=== PATIENT | male | born 1965 | race Hispanic/Latino ===

== ENCOUNTER 2018-04-20 10:33 | Emergency (ER) | payer OTHER ==
[2018-04-20 10:39] VITALS: RESP 19; O2SAT 96
--- NOTE | 2018-04-20 13:08 | ED PDOC ---
Lower Extremity Pain/Injury Time Seen by Provider: 04/20/18 13:06 Chief Complaint (Nursing): Lower Extremity Problem/Injury Chief Complaint (Provider): BILATERAL KNEE PAIN History Per: Patient (52 Y/O MALE HERE WITH BILATERAL KNEE PAIN NOTES WITH CRAMPY PAIN X 2 DAYS BEHIND LEFT KNEE. DENIES ANY FALLS. HAS H/O SX ON LEFT LEG OLD. NOTES HE IS ACTIVE-RUNS/LIFTING WEIGHTS BUT NOTES DECREASE ACTIVITY PRIOR TO ONSET OF SYMPTOMS.) Past Medical History Reviewed: Historical Data, Nursing Documentation, Vital Signs Vital Signs: Last Vital Signs Temp 98.1 F 04/20/18 10:39 Pulse 85 04/20/18 10:39 Resp 19 04/20/18 10:39 BP 133/81 04/20/18 10:39 Pulse Ox 96 04/20/18 10:39 - Family History Family History: States: No Known Family Hx - Home Medications Home Medications: Ambulatory Orders Medication Instructions Recorded Ibuprofen [Motrin] 600 mg PO Q8 PRN #21 tab 05/07/15 No Other Home Meds 1 pow PO DAILY 05/07/15 Ibuprofen [Motrin] 600 mg PO Q8 PRN #21 tab 04/20/18 - Allergies Allergies/Adverse Reactions: Allergies Allergy/AdvReac Type Severity Reaction Status Date / Time No Known Allergies Allergy Verified 05/06/15 23:40 Review of Systems ROS Statement: Except As Marked, All Systems Reviewed And Found Negative Musculoskeletal: Positive for: Other (LEFT KNEE PAIN) Physical Exam - Reviewed Nursing Documentation Reviewed: Yes Vital Signs Reviewed: Yes - Physical Exam Appears: Positive for: Well, Non-toxic, No Acute Distress Head Exam: Positive for: ATRAUMATIC, NORMAL INSPECTION, NORMOCEPHALIC Skin: Positive for: Normal Color, Warm, DRY Eye Exam: Positive for: EOMI, Normal appearance, PERRL ENT: Positive for: Normal ENT Inspection Neck: Positive for: Normal, Painless ROM Cardiovascular/Chest: Positive for: Regular Rate, Rhythm Respiratory: Positive for: CNT, Normal Breath Sounds Gastrointestinal/Abdominal: Positive for: Normal Exam, Soft Back: Positive for: Normal Inspection Extremity: Positive for: Normal ROM, Tenderness (BEHIND LEFT KNEE. MINIMAL EFFUSION NOTED LEFT KNEE. NONTENDER KNEE) Neurologic/Psych: Positive for: Alert, Oriented - ECG O2 Sat by Pulse Oximetry: 96 - Progress ED Course And Treament: DUPLEX LEG: NO DVT XRY OF KNEE: NEG FOR FX XRY OF TIB/FIB LEFT: OLD FX TIB/FIB Disposition - Clinical Impression Clinical Impression: Knee pain - Patient ED Disposition Is Patient to be Admitted: No - Disposition Referrals: [facility] [Outside] Jesu Blanton III, MD [Staff Provider] - Disposition: Routine/Home Disposition Time: 14:32 Condition: FAIR Prescriptions: Ibuprofen [Motrin] 600 mg PO Q8 PRN #21 tab PRN Reason: Pain, Moderate (4-7) Instructions: Knee Pain Forms: [facility] ED School/Work Excuse
--- NOTE | 2018-04-20 14:06 | US ---
Date of service: 04/20/2018 HISTORY: R/O DVT. PRIORS: None. FINDINGS: 2-D, color and duplex Doppler analysis of the lower extremity venous circulation using routine protocol from the femoral veins through the popliteal veins. Venous compressibility: Normal. Flow and augmentation patterns: Normal. Visualized veins upper third of calf: Normal. Bernabe cyst: None. IMPRESSION: No sonographic or Doppler evidence for DVT in left lower extremity.
--- NOTE | 2018-04-20 14:41 | RAD ---
Date of service: 04/20/2018 PROCEDURE: Radiographs of the left tibia and fibula. HISTORY: LEFT KNEE PAIN COMPARISON: None available. TECHNIQUE: Frontal and lateral views obtained. FINDINGS: BONES: There is slight deformity of the distal tibial and femoral shafts at a similar level with apparent osseous fusion between the 2. Medial and lateral tibial cortical thickening along this mildly expanded faintly radiolucent region. No acute pathological fractures seen. On the lateral view projecting both over the posterior distal tibial metaphyseal cortex and same level anterior distal fibula is a geographic slightly sclerotic rimmed 3 by 0.6 cm apparent intra cortical expansile lesion. No acute cortical fracture cortical interruption is appreciated. Distal anterior tibiotalar ankle joint level hypertrophic and arthropathic type cystic changes noted. Medial tibiotalar osseous arthro pathic hypertrophic changes. Areas of cystic and/or focal increased rare affection over the partially visualized metatarsal bases is also questioned (series [id number], image 2) JOINT SPACES: Mild left knee joint arthrosis. Left ankle joint arthrosis as above. OTHER FINDINGS: None. IMPRESSION: Deformity with focal abnormal mineralization in abnormal morphology (intra cortical expansion suggested) of the distal 1/3 tibial and fibular diaphyses. Prior remote fracture through this area with resultant deformed healing is 1 consideration. Prior fracture through an intrinsic lesion here is another. No acute fractures or acute cortical interruption is seen. Osseous fusion/ankylosis between the tibia and fibula is suspect. Comments: Without prior images to assess stability, consider MRI of the left lower leg to assess the intra osseous juxtacortical and surrounding soft tissues . Comments: Study marked for PA review .
--- NOTE | 2018-04-20 15:07 | RAD ---
Date of service: 04/20/2018 PROCEDURE: Bilateral Knee Radiographs. HISTORY: LEFT KNEE PAIN COMPARISON: None. FINDINGS: BONES: Right Knee: Normal. No fracture. Left Knee: Normal. No fracture. JOINTS: Right Knee: Normal. No osteoarthritis. Left knee: Normal. No osteoarthritis. SOFT TISSUES: Right Knee: Normal. Left Knee: Normal. JOINT EFFUSION: Right Knee: None. Left Knee: None. OTHER FINDINGS: None. IMPRESSION: Unremarkable radiographs of the knees.
[2018-04-20 15:18] VITALS: BP 124/79; PULSE 62; TEMP 98.3
== END 2018-04-20 15:17 | disposition home or self-care (01) ==
LOC: H.ER 10:33
DX: M25.562 Pain in left knee (principal)